=== PATIENT | male | born 1990 | race Caucasian/White ===

== ENCOUNTER → 2017-04-13 | Outpatient (CLI) | payer OTHER | LOC: CT 08:30 | DX: Z09 Encounter for follow-up examination after completed treatment for conditions other than malignant neoplasm (principal); G93.89 Other specified disorders of brain; H74.8X2 Other specified disorders of left middle ear and mastoid; Z87.820 Personal history of traumatic brain injury | CPT/HCPCS: 70450 ==

== ENCOUNTER → 2017-05-19 | Outpatient (CLI) | payer OTHER | LOC: HH 14:27 | DX: Z51.81 Encounter for therapeutic drug level monitoring (principal); I74.2 Embolism and thrombosis of arteries of the upper extremities; Z79.01 Long term (current) use of anticoagulants | CPT/HCPCS: 85610 ==

== ENCOUNTER 2017-05-21 15:51 | Emergency (ER) | payer OTHER | END 2017-05-21 17:18 | disposition home or self-care (01) | LOC: ER1 15:51 | DX: T17.928A Food in respiratory tract, part unspecified causing other injury, initial encounter (principal); Z87.891 Personal history of nicotine dependence | CPT/HCPCS: 71010; 99283 ==